=== PATIENT | male | born 1955 | race Two or more races ===

== ENCOUNTER 2016-03-25 22:44 | Emergency (ER) | payer MEDICAID ==
[~2016-03-25] VITALS: Ht 167.6 cm; Wt 49.9 kg
[~2016-03-25 22:44] MED LIST: CYAN500L3; METF-312 PO; OME40GT PO; PHE100C PO; Propranolol Hcl PO; SPIR50TA2 PO
[2016-03-25] MEDS ORDERED: NALOXONE HCL 0.4 MG/ML VIAL ONE (23:42)
[2016-03-26] MEDS ORDERED: NALOXONE HCL 0.4 MG/ML VIAL IV ONE (00:30)
[2016-03-26 00:32] LABS: Urine Bilirubin Negative (Negative); Urine Color Yellow (Yellow); Urine Mucus FEW (None Seen); Urine Nitrite Negative (Negative); Urine RBC 7 /hpf (0 - 3); Urine Squamous Epithelial Cell FEW /hpf (<5); Urine pH 5.5 (5.0-8.0)
[2016-03-26 00:33] LABS: Urine Blood 2+ /uL (Negative); Urine Glucose 3+ mg/dL (Normal); Urine Ketone 1+ (Negative)
[2016-03-26 01:00] LABS: Partial Thromboplastin Time 27.4 sec (22.64-33.71)
[2016-03-26 01:01] LABS: INR 1.27 (0.9-1.15); Prothrombin Time 13.1 sec (9.37-12.3)
[2016-03-26 01:05] LABS: Albumin 2.8 g/dL (3.4-5.0); Anion Gap 10 (5-15); Aspartate Aminotransferase 93 U/L (15-37); BUN/Creatinine Ratio 10.4; Blood Urea Nitrogen 11 mg/dL (7-18); Calcium 7.7 mg/dL (8.5-10.1); Carbon Dioxide 24 mmol/L (21-32); Chloride 105 mmol/L (98-107); GFR African American 91 mL/min; GFR Non-African American 75 mL/min; Glucose 190 mg/dL (74-106); Magnesium 1.9 mg/dL (1.6-2.6); Potassium 3.3 mmol/L (3.5-5.1); Sodium 139 mmol/L (136-145)
[2016-03-26 01:07] LABS: Lactic Acid 4.3 mmol/L (0.4-2.0)
[2016-03-26 01:12] LABS: Alkaline Phosphatase 108 U/L (45-117); Bilirubin, Total 1.1 mg/dL (0.2-1.0); Total Protein 7.8 g/dL (6.4-8.2)
[2016-03-26 01:26] LABS: REFLEX LACTIC ACID YES OR NO YES
[2016-03-26 01:33] LABS: Basophils # (auto) 0 uL; Basophils % (auto) 0.2 % (0.0-2.0); DEFINITIVE VIEW TRANSMISSION; Eosinophils # (auto) 0 uL; Hematocrit 42.6 % (41.0-53.0); Hemoglobin 13.6 g/dL (13.5-17.5); Lymphocytes # (auto) 0.5 uL; Lymphocytes % (auto) 10.1 % (10.0-50.0); Mean Corpuscular Hemoglobin 29.2 pg (28.0-32.0); Mean Corpuscular Hgb Conc. 31.9 g/dL (32.0-36.0); Mean Corpuscular Volume 91.5 fL (80.0-100.0); Mean Platelet Volume 9.1 fL (7.4-10.4); Monocytes # (auto) 0.4 uL; Monocytes % (auto) 8.5 % (0.0-12.0); Neutrophils # (auto) 4.3 uL; Neutrophils % (auto) 81.2 % (37.0-80.0); Platelet Count (auto) 63 10^3/uL (140-450); Red Cell Distribution Width 17.5 % (11.6-16.0); SUSPECT VIEW TRANSMISSION; White Blood Cell 5.3 10^3/uL (4.4-10.8)
[2016-03-26] MEDS ORDERED: MANNITOL FTV 25% 12.5 GM/50 ML 100 ML IV ONE (01:35)
[2016-03-26] MEDS ORDERED: MANNITOL FTV 25% 12.5 GM/50 ML 50 ML IV ONE ×2 (01:39→01:45)
[2016-03-26] MEDS ORDERED: DEXAMETHASONE SOD PHOS 10MG/1ML VIAL INJ IV ONE (01:45)
[2016-03-26] MEDS ORDERED: MANNITOL 20% SOLN 100 gm/500ml 250 ML IV ONE (01:45)
[2016-03-26] MEDS ORDERED: SUCCINYLCHOLINE CHLORIDE 20 MG/ML 10ML VIAL IV ONE (02:45)
[2016-03-26] MEDS ORDERED: MIDAZOLAM DRIP 100 mg/100mL NS 100 ML IV SCH (02:45)
[2016-03-26] MEDS ORDERED: ETOMIDATE (2MG/ML) 20ML VIAL IV ONE (02:45)
[2016-03-26] MEDS ORDERED: PROPOFOL 100 ML IV ONE (03:44)
[2016-03-26] MEDS ORDERED: MORP15TA PO (04:51)
[2016-03-26] MEDS ORDERED: MORP30TA PO (04:52)
[2016-03-26] MEDS ORDERED: PRO10T PO (04:52)
[2016-03-26] MEDS ORDERED: [UNRECOGNIZED DRUG - CODE] PO (04:53)
[2016-03-26] MEDS ORDERED: OMEP20CA5 PO (04:54)
[2016-03-26] MEDS ORDERED: PHE100C PO (04:55)
[2016-03-26] MEDS ORDERED: GABA-494 PO (04:56)
[2016-03-26] MEDS ORDERED: LORA1TAB12 PO (04:56)
[2016-03-26 12:21] VITALS: BP 95/69
== END 2016-03-26 12:54 ==
LOC: ER 22:44
DX: A41.9 Sepsis, unspecified organism (principal); E87.6 Hypokalemia; I62.9 Nontraumatic intracranial hemorrhage, unspecified; I11.0 Hypertensive heart disease with heart failure; I50.9 Heart failure, unspecified; E11.649 Type 2 diabetes mellitus with hypoglycemia without coma; I25.10 Atherosclerotic heart disease of native coronary artery without angina pectoris; K21.9 Gastro-esophageal reflux disease without esophagitis; Z87.891 Personal history of nicotine dependence; F20.9 Schizophrenia, unspecified; Z98.61 Coronary angioplasty status; Z79.899 Other long term (current) drug therapy; Z88.6 Allergy status to analgesic agent; Z88.8 Allergy status to other drugs, medicaments and biological substances
CPT/HCPCS: 31500; 36415; 36600; 70450; 71010; 80053; 80320; 81001; 82805; 82962; 83605; 83735; 84484; 85025; 85610; 85730; 87040; 93005; 96365; 96375; 99285; G0434; J0330; J1100; J2150; J2310; J2704; 94002